=== PATIENT | female | born 1995 | race African-American/Black ===

== ENCOUNTER 2017-09-26 11:58 | Emergency (ER) | payer MEDICAID ==
[~2017-09-26] VITALS: Ht 165.1 cm; Wt 55.0 kg
[2017-09-26] MEDS ORDERED: KETOROLAC 30MG/ML VIAL IM ONE (14:15)
[2017-09-26] MEDS ORDERED: IBUPROFEN 800MG TABLET PO ONE (14:30)
[2017-09-26 14:41] VITALS: BP 103/75
== END 2017-09-26 14:58 | disposition home or self-care (01) ==
LOC: ER 12:13
DX: S10.93XA Contusion of unspecified part of neck, initial encounter (principal); V49.40XA Driver injured in collision with unspecified motor vehicles in traffic accident, initial encounter; Y93.89 Activity, other specified; Y92.410 Unspecified street and highway as the place of occurrence of the external cause; R03.0 Elevated blood-pressure reading, without diagnosis of hypertension
CPT/HCPCS: 99283

== ENCOUNTER 2018-10-07 11:42 | Emergency (ER) | payer MEDICAID ==
[~2018-10-07] VITALS: Ht 165.1 cm; Wt 57.0 kg
[2018-10-07] MEDS ORDERED: KETOROLAC 30MG/ML VIAL IV STA (11:58)
[2018-10-07 12:52] LABS: BASOPHILS % 0.6 % (0.0-2.0); EOSINOPHILS % 1.1 % (0.0-5.0); HEMATOCRIT. 33.9 % (36.0-48.0); HEMOGLOBIN. 10.7 g/dL (12.0-16.0); LYMPHOCYTES % 16.7 % (20.0-50.0); MEAN PLATELET VOLUME 9.4 fl (7.4-10.4); MONOCYTES % 7.8 % (2.0-8.0); NEUTROPHILS % 73.8 % (40.0-76.0); PLATELET 244 x1000/uL (130-400); RED BLOOD CELL COUNT 4.46 mill/uL (4.2-5.4); RED CELL DISTRIBUTION WIDTH 18.2 % (11.6-14.6)
[2018-10-07 12:59] LABS: CHLORIDE 112 mEq/L (98-107)
[2018-10-07 13:25] LABS: CLARITY URINE CLOUDY (CLEAR); COLOR URINE YELLOW (YELLOW); KETONES URINE 1+ (NEGATIVE); LEUKOCYTE ESTERASE URINE NEGATIVE (NEGATIVE); NITRITE URINE NEGATIVE (NEGATIVE); OCCULT BLOOD URINE 3+ (NEGATIVE); PROTEIN URINE 1+ (NEGATIVE); SPECIFIC GRAVITY URINE 1.028 (1.005-1.030); UROBILINOGEN URINE 0.2 E.U./dL (0.2-1.0)
[2018-10-07 14:50] VITALS: BP 104/67
== END 2018-10-07 15:50 | disposition home or self-care (01) ==
LOC: ER 11:56
DX: N39.0 Urinary tract infection, site not specified (principal); R55 Syncope and collapse; F12.90 Cannabis use, unspecified, uncomplicated; S00.83XA Contusion of other part of head, initial encounter; W18.39XA Other fall on same level, initial encounter; Y93.89 Activity, other specified; Y92.89 Other specified places as the place of occurrence of the external cause; Y99.9 Unspecified external cause status
CPT/HCPCS: 36415; 71045; 80053; 81003; 81025; 85025; 86850; 86900; 86901; 93005; 96374; 99284; J1885

== ENCOUNTER 2024-05-16 18:59 | Emergency (ER) | payer MEDICAID ==
[~2024-05-16] VITALS: Ht 165.1 cm; Wt 58.0 kg
[2024-05-16 19:12] VITALS: BP 103/60; PULSE 59; RESP 16; TEMP 97.8; O2SAT 100
[2024-05-16 19:47] LABS: CLARITY URINE CLEAR (CLEAR); COLOR URINE DARK YELLOW (YELLOW); GLUCOSE URINE NEGATIVE (NEGATIVE); KETONES URINE 4+ (NEGATIVE); LEUKOCYTE ESTERASE URINE TRACE (NEGATIVE); NITRITE URINE NEGATIVE (NEGATIVE); OCCULT BLOOD URINE 3+ (NEGATIVE); PROTEIN URINE 2+ (NEGATIVE); SPECIFIC GRAVITY URINE 1.032 (1.005-1.030)
[2024-05-16 20:17] LABS: BACTERIA URINE 1+; SQUAMOUS EPITHELIAL CELL URINE FEW /lpf (RARE/1+)
[2024-05-16 20:18] LABS: WBC URINE 0-2 /hpf (0-2)
[2024-05-16 20:23] LABS: BASOPHILS % 0.7 % (0.0-2.0); DIFFERENTIAL COMMENT 0; EOSINOPHILS % 0.1 % (0.0-5.0); HEMATOCRIT. 38.9 % (36.0-48.0); HEMOGLOBIN. 12.6 g/dL (12.0-16.0); LYMPHOCYTES % 9.2 % (20.0-50.0); MEAN CORPUSCULAR HEMOGLOBIN 26.2 pg (28.0-32.0); MEAN CORPUSCULAR HGB CONC 32.5 g/dL (31.0-37.0); MEAN CORPUSCULAR VOLUME 80.9 fL (81.0-99.0); MEAN PLATELET VOLUME 9.7 fl (7.4-10.4); PLATELET 198 x1000/uL (130-400); RED BLOOD CELL COUNT 4.81 mill/uL (4.2-5.4); RED CELL DISTRIBUTION WIDTH 16.5 % (11.6-14.6); WHITE BLOOD COUNT 9.7 x1000/uL (4.5-11.0)
[2024-05-16 20:24] LABS: CHLORIDE 108 mEq/L (98-107); POTASSIUM 4.4 mEq/L (3.5-5.1); SODIUM 142 mEq/L (136-145)
[2024-05-16 20:25] LABS: CARBON DIOXIDE 25 mEq/L (21-32)
[2024-05-16 20:26] LABS: CALCIUM 10.5 mg/dL (8.7-10.4)
[2024-05-16 20:30] LABS: CREATININE 0.8 mg/dL (0.6-1.0); GLUCOSE 120 mg/dL (70-105)
[2024-05-16 20:31] LABS: UREA NITROGEN BLOOD 11 mg/dL (9-23)
[2024-05-17] MEDS: SODIUM CHLORIDE 0.9% 1,000 ML IV ONE (00:07)
[2024-05-17] MEDS: KETOROLAC 30MG/ML VIAL IV NR (00:15)
[2024-05-17] MEDS: ONDANSETRON HCL 4MG/2ML INJ IV NR (00:15)
[2024-05-17] MEDS: ONDANSETRON HCL 4MG/2ML INJ IV STA (00:27)
[2024-05-17] MEDS: KETOROLAC 30MG/ML VIAL IV STA (00:27)
[2024-05-17] MEDS ORDERED: HYDR-4001 MT (01:47)
== END 2024-05-17 02:31 | disposition home or self-care (01) ==
LOC: ER 18:59
DX: N94.6 Dysmenorrhea, unspecified (principal); F12.10 Cannabis abuse, uncomplicated
CPT/HCPCS: 80048; 81003; 81025; 83690; 85025; 36415; 76830; 76856; 99285; 96361; 96374; J7030; J1885; J2405; Z7610

== ENCOUNTER 2024-06-17 18:52 | Emergency (ER) | payer MEDICAID ==
[~2024-06-17] VITALS: Ht 162.6 cm; Wt 55.0 kg
[~2024-06-17 18:52] MED LIST: HYDR-4001 MT
[2024-06-17 18:56] VITALS: O2SAT 100
[2024-06-17] MEDS ORDERED: KETOROLAC 30MG/ML VIAL IV ONE (19:00)
[2024-06-17 20:56] LABS: BASOPHILS % 0.5 % (0.0-2.0); EOSINOPHILS % 0.2 % (0.0-5.0); HEMATOCRIT. 38.3 % (36.0-48.0); HEMOGLOBIN. 12.3 g/dL (12.0-16.0); MEAN CORPUSCULAR HEMOGLOBIN 26.5 pg (28.0-32.0); MEAN CORPUSCULAR HGB CONC 32.2 g/dL (31.0-37.0); MEAN CORPUSCULAR VOLUME 82.3 fL (81.0-99.0); MEAN PLATELET VOLUME 9.2 fl (7.4-10.4); MONOCYTES % 4.4 % (2.0-8.0); NEUTROPHILS % 83.9 % (40.0-76.0); PLATELET 200 x1000/uL (130-400); RED BLOOD CELL COUNT 4.66 mill/uL (4.2-5.4); RED CELL DISTRIBUTION WIDTH 17.3 % (11.6-14.6)
[2024-06-17 21:00] LABS: CHLORIDE 110 mEq/L (98-107); POTASSIUM 3.9 mEq/L (3.5-5.1); SODIUM 140 mEq/L (136-145)
[2024-06-17] MEDS: SODIUM CHLORIDE 0.9% 1,000 ML IV ONE (21:00)
[2024-06-17 21:01] LABS: CALCIUM 10.1 mg/dL (8.7-10.4); CARBON DIOXIDE 24 mEq/L (21-32)
[2024-06-17 21:05] LABS: INR 1.1; PROTHROMBIN TIME 11.9 sec (9.6-11.0)
[2024-06-17 21:06] LABS: CREATININE 0.8 mg/dL (0.6-1.0); GLUCOSE 107 mg/dL (70-105); UREA NITROGEN BLOOD 13 mg/dL (9-23)
[2024-06-17 21:07] LABS: HCG SCREEN NEGATIVE
[2024-06-17 23:18] LABS: CLARITY URINE CLOUDY (CLEAR); COLOR URINE DARK YELLOW (YELLOW); GLUCOSE URINE NEGATIVE (NEGATIVE); KETONES URINE 4+ (NEGATIVE); LEUKOCYTE ESTERASE URINE TRACE (NEGATIVE); NITRITE URINE NEGATIVE (NEGATIVE); OCCULT BLOOD URINE 3+ (NEGATIVE); PH URINE 5.5 (4.5-8.0); PROTEIN URINE 2+ (NEGATIVE)
[2024-06-17] MEDS ORDERED: CEPH500C2 MT (23:33)
[2024-06-17] MEDS ORDERED: IBUP-2029 MT (23:34)
[2024-06-17 23:55] LABS: WBC URINE 0-2 /hpf (0-2)
[2024-06-17 23:56] LABS: BACTERIA URINE TRACE; RBC URINE TNTC /hpf (0-2); SQUAMOUS EPITHELIAL CELL URINE FEW /lpf (RARE/1+)
[2024-06-18] MEDS ORDERED: ONDANSETRON HCL 4MG/2ML INJ IV ONE (00:15)
[2024-06-18] MEDS: KETOROLAC 30MG/ML VIAL IV NR (00:45)
[2024-06-18] MEDS: ONDANSETRON HCL 4MG/2ML INJ IV NR (00:45)
[2024-06-18 01:00] VITALS: BP 105/68; PULSE 75; RESP 17; TEMP 36.39180; O2SAT 99
[2024-06-18] MEDS: METOCLOPRAMIDE HCL 10MG/2ML VIAL IV ONE (02:00)
[2024-06-18] MEDS ORDERED: KETOROLAC 30MG/ML VIAL IV PRN (02:15)
[2024-06-18] MEDS ORDERED: ONDANSETRON HCL 4MG/2ML INJ IV PRN (02:15)
[2024-06-18] MEDS ORDERED: DIPHENHYDRAMINE 50MG/ML VIAL IV PRN (02:15)
[2024-06-18] MEDS ORDERED: METOCLOPRAMIDE HCL 10MG/2ML VIAL IV PRN (02:15)
[2024-06-18] MEDS ORDERED: ACETAMINOPHEN 325MG TABLET PO PRN ×2 (02:15)
[2024-06-18] MEDS ORDERED: MORPHINE SULFATE 2 MG/ML INJ (NOT FOR IM USE) IV PRN (02:15)
[2024-06-18] MEDS ORDERED: MAGNESIUM/ALUMINUM HYDROXIDE/SIMETHICONE 30ML UDC PO PRN (02:15)
[2024-06-18] MEDS ORDERED: SODIUM CHLORIDE 0.9% 1,000 ML IV SCH (02:30)
[2024-06-18] MEDS ORDERED: NALOXONE HCL 0.4MG/ML VIAL IV PRN (02:45)
[2024-06-18] MEDS ORDERED: FAMOTIDINE 20MG/2ML VIAL IV SCH (09:00)
== END 2024-06-18 03:43 | disposition left against medical advice (07) ==
LOC: ER 18:52
DX: N94.6 Dysmenorrhea, unspecified (principal); N39.0 Urinary tract infection, site not specified; F12.10 Cannabis abuse, uncomplicated
CPT/HCPCS: 80048; 81003; 84703; 85025; 85610; 86850; 86900; 86901; 36415; 96360; 99284; 76830; 76856; J7030; J1885; J2405; Z7610 ×2